=== PATIENT | male | born 1945 | race Caucasian/White ===

== ENCOUNTER 2019-02-22 10:37 | Day surgery (SDC) | payer MEDICARE, OTHER, SELFPAY ==
[2019-02-10 12:50] VITALS: BMI 27.0
[2019-02-22] VITALS (14 sets, daily range): BP systolic 123–154; BP diastolic 73–87; PULSE 69–90; RESP 8–16; TEMP 36–36.7; O2SAT 94–100; BMI 26.9
--- NOTE | 2019-02-22 | DI.RAD.S_ITS ---
PROCEDURE: XR CERVICAL SPINE 2V OR 3V INDICATIONS: C3-4 ACDF FINDINGS: 2 limited intraoperative fluoroscopically stored images of the cervical spine were obtained for intraoperative hardware localization purposes. These images are not meant for diagnostic purposes. Intraoperative findings related to a C3-4 anterior cervical discectomy and fusion procedure are present. IMPRESSION: Intraoperative images obtained during the patient's cervical fusion procedure. Dictated by: Piter Cui M.D. on 02/22/2019 at 14:22 Approved by: Piter Cui M.D. on 02/22/2019 at 14:23
[2019-02-22] MEDS: LACTATED RINGERS 1,000 ML 42 ML IV (11:36)
--- NOTE | 2019-02-22 11:39 | PM.PREOP ---
Pre-operative Note Interval Note History & Physical reviewed/Exam performed by Physician: Yes Changes to H&P: No
[2019-02-22] MEDS: CEFAZOLIN 2 GM/100 ML FROZ.PIGGY IV (11:46)
--- NOTE | 2019-02-22 12:21 | SUR.OPER ---
Supine on padded OR bed, head on gel. Towel roll between shoulders vertically. Arms wrapped in gel pads and papoosed, secured with towel clips. Legs uncrossed, safety belt at thigh, tape over blanket over lower legs.
[2019-02-22] MEDS: ACETAMINOPHEN IV 1,000 MG/100 ML VIAL 400 MG IV (12:50)
--- NOTE | 2019-02-22 13:39 | P.OP_ITS ---
Operative Date/Time/Diagnoses Date of procedure: 02/22/19 Time of procedure: 11:35 Pre-op diagnosis: 1. 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 C3-4 anterior cervical diskectomy and fusion 2. C3-4 anterior interbody cage placement 3. C3-4 anterior instrumentation with plate and screw placement in C3 and C4 vertebrae 4. Utilization of microsurgical technique and operating microscope Same procedure as scheduled: Yes Indications: Patient has been having chronic neck pain and worsening cervical radiculopathy. Patient failed multiple conservative management with worsening pain weakness and numbness in her upper extremity. Patient has been having difficulty performing activity of daily living. After discussing risks benefits of treatment options, patient elected proceed with surgery. Surgeon: Julieth Alvares Security Inspector: Madonna Chilel Click Yes if Unassisted: No Anesthesia Type: General Operative Notes Closure Type: primary Specimen(s): none sent Prosthetic devices, grafts, tissues, transplants, or devices: Globus Extend plate, PEEK cage Estimated Blood Loss (mL): 50 Blood products transfused: none Procedure in detail: Patient was seen in the preoperative area. Risks and benefits of the surgery was discussed with the patient. Informed consent was obtained from the patient and placed in the chart. Surgical site was marked. Patient was taken to the operative room. General anesthesia was administered. Prophylactic antibiotic was given to the patient less than 30 min before the incision was made. Patient was placed into a supine position on a radiolucent table. Patient's shoulders were taped down to allow proper C-arm imaging. Anterior cervical area was prepped and draped in a sterile fashion. Time-out was performed at this time. Using lateral C-arm imaging, the level between C3 and C4 was identified and marked on patient's neck. A oblique incision from midline towards medial border of sternocleidomastoid muscle was made. The platysma muscle was incised in line with skin incision. Metzenbaum scissor was used to develop the plane between the medial border of sternocleidomastoid d and the strap muscles medially. The car otid sheath and its contents were identified and protected behind the hand-held retractor during the entire case. The plane between the carotid sheath and strap muscles was developed with Metzenbaum scissors. Dissection was made down to the level of the anterior cervical fascia. Longus colli muscle was incised on the anterior aspect of vertebral bodies bilaterally from C3-4. Spinal needle was pl aced into the C3-4 disc space and confirmed with lateral C-arm imaging. Using microsurgical technique and operative microscope, anterior cervical diskectomy was performed at C3-4 level. This was done by removing the disc material, removing the anterior and posterior osteophytes posterior longitudinal ligaments along with performing bilateral foraminotomies at the C3-4 levels. Patient was found to have severe foraminal stenosis. Patient's stenosis was fully decompressed after decompression was completed. After the diskectomy was completed, an anterior interbody cage was obtained. The cage was packed with globus via cell bone grafting material. One cage each along with the bone grafting material was then packed into the interbody space at C3-4 along with an anterior cervical plate. The cervical plate was stabilized to the C3-4 vertebrae using screws. After confirming placement of the hardware with AP and lateral C-arm imaging, the screws were locked into the plate using the locking mechanism and torque limiting screwdriver. After the hardware was placed and confirmed with AP and lateral C-arm imaging, the wound was irrigated with sterile normal saline. The platysma muscle and the subcutaneous tissue was closed with 2-0 Vicryl. The skin was closed with 4-0 Monocryl and Steri-Strips. Patient tolerated the procedure well. Patient was transferred recovery room in stable condition. There were no complications. Complications: none Condition: stable Disposition: PACU Plan for aftercare: Discharge to home
[2019-02-22] MEDS: fentaNYL 100 MCG/2 ML INJ IV ×2 (13:59→14:08)
[2019-02-22] MEDS: HYDROMORPHONE 2 MG INJ 0.5 MG IV (14:04)
[2019-02-22] MEDS: OXYCODONE IR 5 MG TABLET PO (14:37)
--- NOTE | 2019-02-22 15:37 | SUR.PHASEII ---
Pt resting comfortably, at bedside, pt to be here 2 hours [address] op per [address] kennedy's instructions to moniter for neck swelling. Dressing to anterior neck remains c/d/i/ and speech is strong and swallow intact.
--- NOTE | 2019-02-22 16:25 | SUR.PHASEII ---
Pt ready to go, no neuro changes, pain tolerable. Pt dressed by and pt left when ready and left in stable condition.
== END 2019-02-22 16:30 | disposition home or self-care (01) ==
LOC: OR 11:18 → AC 12:15
PROVIDERS: Family Provider Family Medicine; PCP Family Medicine; Visit Provider Orthopaedic Surgery Orthopaedic Surgery of the Spine
PROC: (CPT 22551; principal; 2019-02-22 12:45)
DX: M48.02 Spinal stenosis, cervical region (principal); M47.12 Other spondylosis with myelopathy, cervical region; M54.12 Radiculopathy, cervical region
CPT/HCPCS: 22551; 22853; 72040; 76000; C1776; J0131; J0690; J1100; J1170; J2250; J2405; J2704; J3010

== ENCOUNTER → 2023-03-14 08:43 | Outpatient (CLI) | payer MEDICARE, OTHER, SELFPAY ==
--- NOTE | 2023-03-14 | DI.MRI.S_ITS ---
PROCEDURE: MR SHOULDER RT WO CON INDICATIONS: RIGHT SHOULDER PAIN TECHNIQUE: Noncontrast oblique coronal T2 fast spin echo with fat saturation, oblique sagittal T1 spin echo and T2 fast spin echo with fat saturation, axial T1 spin echo and T2 fast spin echo with fat saturation through the shoulder. COMPARISON: [facility], CR, HUMERUS MIN 2VW (RT), 02/25/2014, 12:36. [facility], CR, XR SHOULDER 2+ VIEWS RIGHT, 03/06/2023, 14:11. FINDINGS: Image quality: Excellent. Rotator cuff: There is low-grade partial bursal sided tearing of the supraspinatus tendon at the distal insertion superimposed on chronic supraspinatus and infraspinatus tendinosis. Low-grade partial intrasubstance tearing is seen at the distal infraspinatus insertion. A 4 mm hypointense structure is seen at the distal supraspinatus insertion, most likely a calcification related to calcific tendinopathy. The teres minor and subscapularis tendons are intact. No significant rotator cuff muscle atrophy. Bones and bursae: No acute trabecular bone injury or fracture. Osseous protuberance is seen at the medial aspect of the humeral shaft involving the insertion of the latissimus dorsi. No communication with the medullary canal is seen. Findings are likely the sequela of a remote prior injury or chronic repetitive trauma. This does not appear significantly changed when compared to the radiographs from 02/25/2014 and is considered benign. Severe degenerative changes are seen at the acromioclavicular joint with subchondral cystic changes and subchondral edema and marginal osteophyte formation. There is trace subacromial/subdeltoid bursal fluid. No significant glenohumeral effusion. Capsule and soft tissues: There is nondisplaced tearing of the inferior labrum from anteroinferior to posteroinferior with multiple small paralabral cysts, the largest of which measures up to 5 mm. There is moderate biceps long head tendinosis. There is mild partial effacement of the rotator interval fat. The glenohumeral ligaments are intact. IMPRESSION: 1. 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 2. Moderate tendinosis of the proximal biceps long head tendon. 3. Nondisplaced tearing of the inferior labrum extending from anteroinferior to posteroinferior with multiple small paralabral cysts. 4. Severe glenohumeral osteoarthrosis. 5. Trace subacromial/subdeltoid bursal effusion or bursitis. 6. Stable osseous protuberance at the medial humeral shaft when compared to exams dating back to 2014, which is considered benign. Approved by: Stephon Powers M.D. on 03/14/2023 at 12:48
== END ==
PROVIDERS: Family Provider Family Medicine; PCP Family Medicine; Referring Provider Orthopaedic Surgery; Visit Provider Orthopaedic Surgery
DX: D16.01 Benign neoplasm of scapula and long bones of right upper limb (principal); M75.111 Incomplete rotator cuff tear or rupture of right shoulder, not specified as traumatic; M19.011 Primary osteoarthritis, right shoulder; S43.491A Other sprain of right shoulder joint, initial encounter
CPT/HCPCS: 73221

== ENCOUNTER → 2024-01-19 10:50 | Outpatient (CLI) | payer MEDICARE, OTHER, SELFPAY | LOC: RESP 10:51 | PROVIDERS: Family Provider Family Medicine; PCP Family Medicine; Referring Provider Orthopaedic Surgery; Visit Provider Orthopaedic Surgery | DX: Z01.818 Encounter for other preprocedural examination (principal) | CPT/HCPCS: 93005 ==